=== PATIENT | female | born 1970 | race Caucasian/White ===

== ENCOUNTER 2016-11-20 07:31 | Outpatient (CLI) ==
[2016-10-17 17:57] VITALS: BMI 36.9
--- NOTE | 2016-11-20 08:32 | US ---
EXAM: Ultrasound abdomen limited HISTORY: Right upper quadrant pain COMPARISON: CT 10/17/2016 and ultrasound 11/27/2015 TECHNIQUE: Right upper quadrant ultrasound was performed FINDINGS: Visualized portion pancreas appears normal. Portions of the pancreas obscured secondary bowel gas shadowing. Liver is top normal in size. Liver is diffusely increased in echogenicity. F ocal fatty sparing seen near the gallbladder fossa. Gallbladder is fluid-filled without gallbladder wall thickening, pericholecystic fluid, or shadowing gallstones. No biliary duct dilation with the common bile duct measuring 0.3 cm. Main portal vein patent with normal direction of flow. Right k idney measures 10.7 cm in length without hydronephrosis. IMPRESSION: 1. No cholelithiasis or cholecystitis. 2. Hepatic steatosis
== END 2016-11-20 07:32 | disposition home or self-care (01) ==
LOC: RAD 07:31
PROVIDERS: ATTEND Nurse Practitioner Family
DX: R10.9 Unspecified abdominal pain (principal)

== ENCOUNTER 2016-11-24 07:06 | Outpatient (CLI) ==
[2016-10-17 17:57] VITALS: BMI 36.9
--- NOTE | 2016-11-24 10:26 | NM ---
EXAM: Hepatobiliary scan HISTORY: Right upper quadrant pain. COMPARISON: None of this type. Ultrasound 11/20/2016. CT 10/17/2016. PROCEDURE: The patient was injected with 5.5 mCi of 99mTc mebrofenin intravenously. Images of the a bdomen were obtained at 5 min intervals for 30 minutes.Additional images were obtained 45 minutes a nd 1 hour. The patient was then injected with 2 mcg of CCK by slow infusion while images of the gall bladder were obtained to assess gallbladder contraction. The patient reported no symptoms associated with injection of CCK. FINDINGS: Sequential images demonstrate normal uptake of tracer into the liver. Activity is seen in the intrahepatic biliary ducts at about 15 minutes. The activity appears in the gallbladder at abo ut 25 minutes. Subsequent images demonstrate increasing activity in the gallbladder. Activity firs t appears in the small bowel at 60 minutes. The gallbladder ejection fraction is 80% . IMPRESSION: 1.Normal hepatobiliary scan. 2.The gallbladder ejection fraction is 80% (normal).
== END 2016-11-24 07:07 | disposition home or self-care (01) ==
LOC: RAD 07:06
PROVIDERS: ATTEND Nurse Practitioner Family
DX: R10.9 Unspecified abdominal pain (principal)

== ENCOUNTER 2017-04-20 14:47 | Outpatient (CLI) ==
[2016-10-17 17:57] VITALS: BMI 36.9
--- NOTE | 2017-04-20 15:34 | DI ---
EXAM: Right foot three view HISTORY: Right foot pain COMPARISON: None FINDINGS: No acute fracture or dislocation. Well marginated ossification near the base of the fift h metatarsal, probably due to unfused ossification center versus less likely old trauma. Mild osteo arthritis first MTP joint. Mild to moderate osteoarthritis of the midfoot. Small plantar calcaneal spur. Mild posterior calcaneal enthesopathy. IMPERSSION: 1. No acute fracture or dislocation. 2. Mild to moderate osteoarthritis. 3. Small plantar calcaneal spur.
== END 2017-04-20 14:48 | disposition home or self-care (01) ==
LOC: RAD 14:47
PROVIDERS: ATTEND Nurse Practitioner Family
DX: M79.671 Pain in right foot (principal)

== ENCOUNTER 2019-03-26 18:08 | Emergency (ER) | payer OTHER ==
[2019-03-26 18:12] VITALS: BP 137/93; TEMP 99; BMI 37.8
--- NOTE | 2019-03-26 18:32 | ED.PDOC ---
General ED Provider: Dr. CARRILLO MARIN Chief Complaint: Foot Pain/Injury Stated Complaint: Rt Foot pain. Dropped a tea urn on right foot this am at work Time Seen by Physician: 18:20 Mode of Arrival: Walk-In Information Source: Patient Exam Limitations: No limitations Primary Care Provider: JULIAN ROGERS Nursing and Triage Documentation Reviewed and Agree: Yes Does patient meet sepsis criteria?: No System Inflammatory Response Syndrome: Not Applicable Sepsis Protocol: For patient's 13 years and over: Temp is 96.8 and below OR 101 and greater Pulse >90 BPM Resp >20/minute Acutely Altered Mental Status Are patient's symptoms suggestive of a new infection, such as: -Pneumonia -Skin, Soft Tissue -Endocarditis -UTI -Bone, Joint Infection -Implantable Device -Acute Abdominal Infection -Wound Infection -Meningitis -Blood Stream Catheter Infection -Unknown Musculoskeletal Complaint Exam - Ankle/Foot Complaint/Exam Location of Injury: Reports: Right, Toe #1 Mechanism of Injury: Reports: Trauma Onset/Duration: This mornning Symptoms Are: Reports: Still present Onset of Pain: Reports: Immediate Initial Severity: Severe Current Severity: Moderate Location: Reports: Discrete Character: Reports: Aching, Throbbing Alleviating: Reports: Rest Aggravating: Reports: Movement, Weight bearing Able to Bear Weight: Yes Associated Signs and Symptoms: Reports: Swelling, Redness Related History: Reports: Occupational injury Gout Risk Factors: Reports: >40 years old Related Surgical History: Reports: None Lower Extremity Findings: Present: Swelling (Rt foot site of injury), Ecchymosis Achilles Tendon Abnormality: No Tenderness: Present: Metatarsals Differential Diagnosis: Closed Fracture, Strain Review of Systems - Review Of Systems Constitutional: Reports: No symptoms Eyes: Reports: No symptoms Ears, Nose, Mouth, Throat: Reports: No symptoms Respiratory: Reports: No symptoms Cardiac: Reports: No symptoms GI: Reports: No symptoms : Reports: No symptoms Musculoskeletal: Reports: Joint pain, Joint swelling Skin: Reports: Bruising Neurological: Reports: No symptoms Endocrine: Reports: No symptoms Hematologic/Lymphatic: Reports: No symptoms All Other Systems: Reviewed and Negative Past Medical History - Past Medical History Previously Healthy: Yes Endocrine: Reports: None Cardiovascular: Reports: None Respiratory: Reports: None Hematological: Reports: None Gastrointestinal: Reports: None Genitourinary: Reports: None Neuro/Psych: Reports: None Musculoskeletal: Reports: None Cancer: Reports: None Last Menstrual Period: last month - Surgical History General Surgical History: Reports: None - Family History Family History: Reports: None - Social History Smoking Status: Current every day smoker Hx Substance Use: No Alcohol Screening: None Physical Exam - Physical Exam Appearance: Well-appearing, Well-nourished Pain Distress: Moderate Musculoskeletal: Normal strength, No edema, No calf tenderness, Limited ROM (RT 1at MT and MTP joint), Limited strength Skin: Warm, Dry, Normal color (Ecchymotic) Neurological: Sensation intact, Motor intact, Reflexes intact, Cranial nerves intact, Alert, Oriented Critical Care Note - Critical Care Note Total Time (mins): 0 Course - Course Orders, Labs, Meds: Orders Category Date Time Status FOOT, RIGHT 3 VIEWS Stat RADS 03/26/19 18:29 Completed Vital Signs: Temp Pulse Resp BP Pulse Ox 03/26/19 18:08 99.0 F 104 H 20 137/93 H 98 Departure - Departure Time of Disposition: 19:10 Disposition: HOME SELF-CARE Discharge Problem: Contusion of foot, right Instructions: Foot Contusion (ED) Condition: Good Pt referred to PMD for follow-up: Yes IPMP verified?: No Additional Instructions: Ice, Venkata Wrap and elevated Minimize up activity See PCP for follow up OFf work tomorrow Allergies/Adverse Reactions: Allergies Penicillins Adverse Reaction (Verified 03/26/19 18:12) Home Medications: Ambulatory Orders Losartan Potassium [Cozaar] 25 mg PO DAILY 10/17/16 Amitriptyline HCl [Elavil] 25 mg PO DAILY 03/26/19 Duloxetine HCl 60 mg PO DAILY 03/26/19 Meloxicam [Mobic] 25 mg PO DAILY 03/26/19 Disposition Discussed With: Patient
--- NOTE | 2019-03-26 18:57 | DI ---
Exam: Three views of the right foot. Comparison: 04/20/2017. Reason for exam: Trauma. FINDINGS: No acute fracture or malalignment. The cortices are intact. Similar appearing, well judie inated ossification adjacent to the fifth metatarsal. The joint spaces appear relatively well mainta ined. Small calcaneal enthesiophyte with degenerative findings in the midfoot. Impression: No acute fracture or dislocation is seen in the right foot. Mild degenerative disease.
== END 2019-03-26 19:17 | disposition home or self-care (01) ==
LOC: ED 18:08
DX: S90.31XA Contusion of right foot, initial encounter (principal); W20.8XXA Other cause of strike by thrown, projected or falling object, initial encounter; F17.210 Nicotine dependence, cigarettes, uncomplicated
CPT/HCPCS: 99282